=== PATIENT | male | born 1985 | race Caucasian/White ===

== ENCOUNTER 2017-04-12 17:24 | Emergency (ER) | payer OTHER ==
[~2017-04-12] VITALS: Ht 195.6 cm; Wt 122.7 kg
[~2017-04-12 17:24] MED LIST: AMIT100T2 PO; CALC500T9 PO; IBUP-1827 PO; INSU100I13 SUBQ; LISI40TA PO; METF500T4 PO; ONDA4TAB12 PO; OXYC5TAB72 PO; POLY17PO6 PO
[2017-04-12 17:33] VITALS: BP 153/109; PULSE 127; RESP 16; O2SAT 96
[2017-04-12] MEDS ORDERED: 0.9% Sodium Chloride 1,000 ML IV ONE (18:13)
[2017-04-12 18:38] LABS: APPEARANCE,URINE CLEAR (CLEAR,HAZY); COLOR,URINE YELLOW (YELLOW); OCCULT BLOOD,URINE MODERATE (NEGATIVE); UROBILINOGEN,URINE NORMAL (NORMAL)
[2017-04-12 18:55] LABS: BASOPHILS % (AUTO) 0.2 % (0-3); EOSINOPHILS % (AUTO) 0.9 % (0-5); MONOCYTES % (AUTO) 5.7 % (4-12); Mean Corpuscular Hemoglobin 28.9 pg (27.0-35.0); Mean Corpuscular Volume 81.1 fL (81-100); NEUTROPHILS % (AUTO) 65.2 % (40-74); Platelet Count 250 bil/L (150-400)
--- NOTE | 2017-04-12 18:55 | ED.REPORT ---
HPI- Male Date of Service Apr 12, 2017 ED Provider: Boy Barrow MD 31 y/o male with a hx of DM Type II (uses 50 units of Lantus and metformin) and HTN presents to the ED complaining of right testicle swelling, onset 3 days ago. The swelling got suddenly significantly worse last night. He denies pain but states it is mildly uncomfortable. He denies fever, shaking, chills, vomiting, nausea, penile discharge, hematuria and dysuria. He states he only had one episode of mild dysuria this morning but nothing since. The pt is concerned and became emotional after the ultrasound because he has never experienced similar sx before. He denies sexual partners other than his . PCP: Dr. Belinda Sevilla at [facility] Nursing Notes Stated Complaint: SWOLLEN TESTICLE Chief Complaint: Male Abdominal Pain Nursing Notes Reviewed: Yes Allergies: Coded Allergies: Penicillins (Verified Allergy, Mild, Rash, 04/02/16) Scheduled Amitriptyline (Amitriptyline) 100 Mg Tablet 100 MG PO HS Insulin Glargine (Lantus U100 Solostar Insulin Pen) 100 Unit/1 Ml Insuln.pen 55 UNIT SUBQ DAILY Lisinopril (Lisinopril) 40 Mg Tablet 40 MG PO DAILY Metformin (Metformin) 500 Mg Tablet 1,000 MG PO BID Sulfamethoxazole/Trimeth 800-160 mg (Bactrim DS) 1 Each Tablet 1 TABLET PO BID Scheduled PRN Calcium Carbonate (Tums) 500 Mg Tab.chew 500 MG PO PRN PRN PRN Heartburn Ibuprofen (Ibuprofen) 600 Mg Tablet 600 MG PO QID PRN PRN For Pain Ondansetron ODT (Ondansetron ODT) 4 Mg Tab.rapdis 4 MG PO Q6H PRN PRN For Nausea Polyethylene Glycol 3350 (Miralax) 17 Gm Powd.pack 17 GM PO DAILY PRN PRN For Constipation oxyCODONE (oxyCODONE) 5 Mg Tablet 10 MG PO Q4H PRN PRN For Pain General Time Seen by MD: 18:12 Chief Complaint Testicle swollen right Hx Obtained From: Patient Arrived By: Walk-in Onset Occurred: 3 days ago Symptom Duration: Since onset Severity: Current: No pain currently Severity: Maximum: No pain Recent Healthcare: No recent doctor visit Similar Sx Previous: No Past Medical History Past Medical History Diabetes HTN Past Surgical History Left Knee Eye surgery as child Smoking History Current Every Day Smoker Social History Alcohol Use: "Social" Drug Use: Cocaine, THC Other Social History: Ambulatory Status Independent Review of Systems Constitutional: Denies: Chills, Fever GI: Denies: Nausea, Vomiting Male: Reports Testicular swelling (right testicle), Denies Dysuria, Denies Hematuria, Denies Penile discharge, Denies Testicular pain Complete sys rev & neg: except as marked. Physical Exam Initial Vital Signs Vital Signs (First) Date Time Temp Pulse Resp B/P Pulse Ox O2 Delivery O2 Flow Rate FiO2 04/12/17 17:33 36.8 127 16 153/109 96 Room Air Initial VS: Reviewed Head / Eyes: Atraumatic, Normocephalic Neck: Supple, Non-tender, Full range of motion Respiratory: Breath sounds normal, Clear to auscultation, No respiratory distress Cardiovascular: Regular rate & rhythm, Heart sounds normal, Intact distal pulses Extremities: Vascular intact, Neuro intact, No swelling, No tenderness Skin: Warm, Dry, No cyanosis Neurologic: Alert, Oriented, Nonfocal Male Genitourinary: Atraumatic, Penis NL Normal circumcised external genitalia except the obviously swollen right testicle ,which is mildly tender. Did not trans-illuminate. Epididymis feels engorged Ultrasound report is concerning as well, as per the radiologist. Mild inguinal adenopathy General/Constitutional: Awake, Alert, Cooperative Abdomen: Atraumatic, Soft, Non-tender, No guarding, No rebound Interpretation & Diagnostics PROCEDURE: US TESTICULAR SONOGRAM WITH DOPPLER IMPRESSION: Enlarged, hyperemic right testicle suggestive of orchitis however cannot exclude diffuse infiltrative testicular neoplasm if there is no clinical suspicion of infection. Please correlate clinically, and with urinalysis data. Consider followup testicular ultrasound in 1-2 weeks after treatment for further assessment, and to exclude the possibility of neoplasm. No evidence of torsion. Dictated by: Dinesh Moreno M.D. on 04/12/2017 at 19:20 Approved by: Dinesh Moreno M.D. on 04/12/2017 at 19:26 Lab Results Interpretation Result Diagram: 04/12/17 1848 04/12/17 1848 Test 04/12/17 18:28 04/12/17 18:48 Urine Color Yellow (YELLOW) Urine Appearance Clear (CLEAR,HAZY) Urine pH 5.0 (5.0-8.0) Urine Specific [place] 1.020 (1.003-1.035) Urine Protein Negativemg/dL (NEG,TRACE) Urine Glucose (UA) 1000mg/dL (NEGATIVE) Urine Ketones Negativemg/dL (NEGATIVE) Urine Occult Blood Moderate (NEGATIVE) Urine Nitrite Negative (NEGATIVE) Urine Bilirubin Negative (NEGATIVE) Urine Urobilinogen Normalmg/dL (NORMAL) Urine Leukocyte Esterase Negative (NEGATIVE) Urine RBC 3-10/hpf (0-2) Urine WBC 0-5/hpf (0-5) Urine Epithelial Cells Few/hpf (NONE-MOD) Urine Crystals None seen (NONE SEEN) Urine Bacteria Few/hpf (NONE-FEW) Urine Hyaline Casts None/lpf (NONE) Urine Granular Casts None seen (NONE SEEN) Urine Waxy Casts None seen (NONE SEEN) Urine Red Blood Cell Casts None seen (NONE SEEN) Urine White Blood Cell Casts None seen (NONE SEEN) Urine Mucus None seen (None Seen) Urine Trichomonas None seen (NONE SEEN) Urine Yeast None (NONE SEEN) Urinalysis Comment None Urine Culture Reflexed Not indicated White Blood Count 9.5th/mm3 (3.8-10.1) Red Blood Count 5.50mil/mm3 (4.40-5.80) Hemoglobin 15.9g/dL (13.8-17.2) Hematocrit 44.6% (41.0-50.0) Mean Corpuscular Volume 81.1fL (81-100) Mean Corpuscular Hemoglobin 28.9pg (27.0-35.0) Mean Corpuscular Hemoglobin Concent 35.7% (32.0-37.0) Red Cell Distribution Width 12.4% (12.3-15.4) Platelet Count 250bil/L (150-400) Neutrophils (%) (Auto) 65.2% (40-74) Lymphocytes (%) (Auto) 27.9% (14-46) Monocytes (%) (Auto) 5.7% (4-12) Eosinophils (%) (Auto) 0.9% (0-5) Basophils (%) (Auto) 0.2% (0-3) Sodium Level 133mEq/L (134-144) Potassium Level 4.0mEq/L (3.5-5.2) Chloride Level 94mEq/L (97-108) Carbon Dioxide Level 24mmol/L (18-29) Blood Urea Nitrogen 14mg/dL (6-20) Creatinine 0.68mg/dL (0.76-1.27) Estimat Glomerular Filtration Rate 144mL/min (>59) Glucose Level 270mg/dL (60-99) Lactic Acid Level 1.1mmol/L (0.4-2.0) Calcium Level 9.7mg/dL (8.5-10.1) Total Bilirubin 0.3mg/dL (0.0-1.2) Aspartate Amino Transf (AST/SGOT) 16U/L (0-50) Alanine Aminotransferase (ALT/SGPT) 18U/L (0-44) Alkaline Phosphatase 90U/L (25-150) Total Protein 7.8g/dL (6.4-8.4) Albumin 4.4g/dL (3.4-5.0) Lab Results Interpretation: Blood glucose = 270 Re-Eval/Medical Decision Med Decision/Clinical Course 31-year-old male who is a diabetic. He presents with painless testicular swelling reportedly for only 3 days. He is noted be tachycardic, 127 on arrival, improved to 112 on departure did not appear to be septic or hypovolemic is noted be anxious. I am concerned this may be a malignancy however relatively short time frame argues more for an infectious process. Does not appear to have a viral syndrome, and while he doubts that he has a bacterial infection, we will start him on treatment empirically pending follow-up. He is referred for urology follow-up. Source of Hx: Old records Re-Evaluation/Progress : Time of Eval: 20:42 Re-Evaluation/Progress Note: Rechecked pt. Discussed lab results, imaging results, diagnosis and plan to discharge so the pt can follow up with his PCP and urologist. Informed the pt the urologist has not returned the calls yet. The pt understands and agrees with the plan. All questions answered. Consultation #1: Referral / Consult Name: Kaleb Dai MD Consulted With: Primary care physician Call Returned at: 20:37 Doughnut Icer: Will see in office, Agrees with eval Note: Dr. Dai agrees with eval and plan to follow up with the pt. Consultation #2: Consulted With: Urology Call Returned at: 20:59 Note: The P.A. covering for Dr. Pleitez returned the call and informed about the pt's condition. Counseled Regarding: Diagnosis, Lab results, Need for follow-up, When/why to return to ED Discharge & Departure Impression: Primary Impression: Testicular swelling, right Disposition: Home Discharge Condition All VS Reviewed: Yes Condition: Stable Patient Instructions: Orchitis (ED) Additional Instructions: Emergency department evaluation today included interview, examination, labs and ultrasound of scrotum. We note significant swelling of the right testicle, the cause of this at present is not certain. We will start an antibiotic in case this is a bacterial infection. Take bactrim DS one twice daily for 10 days, Close follow-up with primary care and urology is needed to ensure that this resolves or that it is further evaluated if not resolving. May use ibuprofen as needed for pain, wear underwear that supports your scrotum and elevate scrotum on a towel when seated or reclining. Return emergency Department for fevers shaking chills vomiting or other new symptoms. Referrals: Belinda Sevilla MD (PCP) Blanquita Pleitez MD Scribe Attestation Portions of this note were transcribed by Rodolfo Brewer. I, , personally performed the history, physical exam and medical decision- making;I reviewed and confirmed the accuracy of the information in the transcribed note. Signed by Jessie Daniels. 04/12/17 20:46 copies to: Blanquita Pleitez MD; Belinda Sevilla MD, Donald L MD Apr 12, 2017 18:55 Rodolfo Brewer Apr 12, 2017 19:27
--- NOTE | 2017-04-12 19:28 | DRSVH ---
PROCEDURE: US TESTICULAR SONOGRAM WITH DOPPLER INDICATIONS: r/o torsion. History of swelling x3 days TECHNIQUE: Real-time scanning was performed of the scrotum and testicles, with image documentation. Color and p ulse Doppler interrogation was performed of both testicles. COMPARISON: None. FINDINGS: There are incidentally noted punctate bilateral testicular calcifications, technically a n onspecific finding. Right: Testicle is normal in size at 6.4 x 3.8 x 4.6 cm, and diffusely heterogeneous in echotexture. Epididymis is not well visualized. No hydrocele or varicoceles. Overlying scrotal skin is normal in thickness. Left: Testicle is normal in size at 4.3 x 2.5 x 3.9 cm, and homogeneous in echotexture. Epididymis is normal in overall size and morphology. No hydrocele or varicoceles. Overlying scrotal skin is no rmal in thickness. Doppler: Color and pulse Doppler demonstrate normal and symmetric arterial flow in both testicles. No evidence of right testicular torsion. There is right testicular hyperemia. IMPRESSION: Enlarged, hyperemic right testicle suggestive of orchitis however cannot exclude diffuse infiltrative testicular neoplasm if there is no clinical suspicion of infection. Please correlate clinically, and with urinalysis data. Consider followup testicular ultrasound in 1-2 weeks after treatment for furth er assessment, and to exclude the possibility of neoplasm. No evidence of torsion. Dictated by: Dinesh Moreno M.D. on 04/12/2017 at 19:20 Approved by: Dinesh Moreno M.D. on 04/12/2017 at 19:26
[2017-04-12] MEDS ORDERED: Trimethoprim-Sulfa 160 mg-800 mg Tablet PO ONE (20:50)
[2017-04-12] MEDS ORDERED: SULF1TAB7 PO (20:52)
[2017-04-12 21:32] VITALS: BP 154/110; PULSE 112; RESP 18; O2SAT 99
== END 2017-04-12 21:00 | disposition home or self-care (01) ==
LOC: SED 17:24
DX: N50.811 Right testicular pain (principal); I10 Essential (primary) hypertension; E11.9 Type 2 diabetes mellitus without complications; F17.200 Nicotine dependence, unspecified, uncomplicated; Z79.84 Long term (current) use of oral hypoglycemic drugs; Z79.4 Long term (current) use of insulin; Z88.0 Allergy status to penicillin
CPT/HCPCS: 36415; 76870; 80053; 81000; 83605; 85025; 93975; 96360; 99284; J7030

== ENCOUNTER 2017-04-17 17:50 | Emergency (ER) | payer OTHER ==
[~2017-04-17] VITALS: Ht 195.6 cm; Wt 114.1 kg
[~2017-04-17 17:50] MED LIST changes: +SULF1TAB7 PO
[2017-04-17 18:04] VITALS: BP 118/77; PULSE 129; RESP 20; O2SAT 100
[2017-04-17 18:43] LABS: BASOPHILS % (AUTO) 0.2 % (0-3); EOSINOPHILS % (AUTO) 1.1 % (0-5); MONOCYTES % (AUTO) 5.5 % (4-12); Mean Corpuscular Hemoglobin 29.1 pg (27.0-35.0); NEUTROPHILS % (AUTO) 69.2 % (40-74); Platelet Count 279 bil/L (150-400)
--- NOTE | 2017-04-17 18:44 | ED.REPORT ---
HPI-General Illness Date of Service Apr 17, 2017 ED Provider: Aida Thomas MD 31 y/o male with a hx of DM and HTN presents to the ED complaining of painless right testicular swelling for the last week. The swelling suddenly came on over 3 days. He was seen at the ED 5 days ago for the same complaint and was told it may be an infection or malignancy. He was discharged with antibiotic and instruction to follow up with urology. The pt followed his urologist's recommendation to finish the antibiotic course but has had no relief. He called the urologist today for persistent swelling, who advised him to go to the ED. Associated sx incldue intermittent chills, nausea, dry heaving, one episode of vomiting, and weakness. The pt also states "I get hot easily and I have shortness of breath sometimes when I move a lot". He denies any testicular pain , fever, cough, myalgia, dysuria and any other sx. The pt's states his blood sugar has also been high. Nursing Notes Stated Complaint: ANTIBIOTICS NOT WORKING, POTENTIAL INFECTION Chief Complaint: General Complaint Nursing Notes Reviewed: Yes Allergies: Coded Allergies: Penicillins (Verified Allergy, Mild, Rash, 04/17/17) Scheduled Amitriptyline (Amitriptyline) 100 Mg Tablet 100 MG PO HS Insulin Glargine (Lantus U100 Solostar Insulin Pen) 100 Unit/1 Ml Insuln.pen 55 UNIT SUBQ DAILY Lisinopril (Lisinopril) 40 Mg Tablet 40 MG PO DAILY Metformin (Metformin) 500 Mg Tablet 1,000 MG PO BID Sulfamethoxazole/Trimeth 800-160 mg (Bactrim DS) 1 Each Tablet 1 TABLET PO BID Scheduled PRN Calcium Carbonate (Tums) 500 Mg Tab.chew 500 MG PO PRN PRN PRN Heartburn Ibuprofen (Ibuprofen) 600 Mg Tablet 600 MG PO QID PRN PRN For Pain Naproxen (Naproxen) 375 Mg Tablet 375 MG PO BID PRN PRN For Pain Ondansetron ODT (Ondansetron ODT) 4 Mg Tab.rapdis 4 MG PO Q6H PRN PRN For Nausea Polyethylene Glycol 3350 (Miralax) 17 Gm Powd.pack 17 GM PO DAILY PRN PRN For Constipation oxyCODONE (oxyCODONE) 5 Mg Tablet 10 MG PO Q4H PRN PRN For Pain General Time Seen by MD: 18:42 Chief Complaint Other (right testicle swelling) Hx Obtained From: Patient Arrived By: Walk-in Sudden in Onset?: Yes Onset Occurred: 1 week ago Symptom Duration: Since onset Severity: Current: No pain currently Severity: Maximum: No pain Recent Healthcare: Recent doctor visit Similar Sx Previous: Yes Past Medical History Past Medical History Diabetes HTN Past Surgical History Left Knee Eye surgery as child Smoking History Current Every Day Smoker Social History Alcohol Use: "Social" Drug Use: Cocaine, THC Other Social History: Ambulatory Status Independent Review of Systems Reports: right testicular swelling Full Review of Systems Constitutional: Reports: Chills (intermittent), Weakness - generalized, Denies: Fever Respiratory: Reports: Dyspnea on exertion, Denies: Non-productive cough GI: Reports: Nausea (and dry heaving) Male: Denies Dysuria Musculoskeletal: Denies: Myalgia Complete sys rev & neg: except as marked. Physical Exam Vital Signs Vital Signs Date Time Temp Pulse Resp B/P Pulse Ox O2 Delivery O2 Flow Rate FiO2 04/17/17 22:38 37 110 20 112/67 98 Room Air 04/17/17 21:09 36.8 103 20 115/53 96 Room Air 04/17/17 18:04 36.6 129 20 118/77 100 Room Air Initial VS: Reviewed, Vital signs abnormal General/Constitutional: Well-developed, Well-nourished Neck: Supple, Non-tender, Full range of motion Extremities: Vascular intact, Neuro intact, No swelling, No tenderness Skin: Warm, Dry, No cyanosis Neurologic: Alert, Oriented, Nonfocal Respiratory / Chest: Atraumatic, Breath sounds NL, Breath sounds = bilat, No respiratory distress, No rales, No rhonchi, No wheezing Cardiovascular: Regular rhythm, Heart sounds NL, No gallop, No murmurs, No rubs Heart Rate / Rhythm: Positive: Tachycardia Abdomen: Atraumatic, Soft, Non-tender, No guarding, No rebound Transient RUQ abdominal discomfort resolved. Back: Atraumatic, Full range of motion, Painless range of motion, No CVA tenderness Male Genitourinary: Atraumatic, Inspection NL, No mass (no groin mass) Testes / Epidid / Scrotum: Positive: Testis enlarged R No warmth and no tenderness to right testis Interpretation & Diagnostics Lab Results Interpretation Result Diagram: 04/17/17 1835 04/17/17 1835 Test 04/17/17 18:26 04/17/17 18:35 04/17/17 21:24 Urine Color Yellow (YELLOW) Urine Appearance Clear (CLEAR,HAZY) Urine pH 5.0 (5.0-8.0) Urine Specific [place] 1.020 (1.003-1.035) Urine Protein Negativemg/dL (NEG,TRACE) Urine Glucose (UA) 1000mg/dL (NEGATIVE) Urine Ketones Tracemg/dL (NEGATIVE) Urine Occult Blood Negative (NEGATIVE) Urine Nitrite Negative (NEGATIVE) Urine Bilirubin Negative (NEGATIVE) Urine Urobilinogen Normalmg/dL (NORMAL) Urine Leukocyte Esterase Negative (NEGATIVE) Urine RBC 0-2/hpf (0-2) Urine WBC 0-5/hpf (0-5) Urine Epithelial Cells None/hpf (NONE-MOD) Urine Crystals None seen (NONE SEEN) Urine Bacteria Few/hpf (NONE-FEW) Urine Hyaline Casts None/lpf (NONE) Urine Granular Casts None seen (NONE SEEN) Urine Waxy Casts None seen (NONE SEEN) Urine Red Blood Cell Casts None seen (NONE SEEN) Urine White Blood Cell Casts None seen (NONE SEEN) Urine Mucus None seen (None Seen) Urine Trichomonas None seen (NONE SEEN) Urine Yeast None (NONE SEEN) Urinalysis Comment None Urine Culture Reflexed Not indicated White Blood Count 9.6th/mm3 (3.8-10.1) Red Blood Count 5.71mil/mm3 (4.40-5.80) Hemoglobin 16.6g/dL (13.8-17.2) Hematocrit 46.8% (41.0-50.0) Mean Corpuscular Volume 82.0fL (81-100) Mean Corpuscular Hemoglobin 29.1pg (27.0-35.0) Mean Corpuscular Hemoglobin Concent 35.5% (32.0-37.0) Red Cell Distribution Width 12.6% (12.3-15.4) Platelet Count 279bil/L (150-400) Neutrophils (%) (Auto) 69.2% (40-74) Lymphocytes (%) (Auto) 23.8% (14-46) Monocytes (%) (Auto) 5.5% (4-12) Eosinophils (%) (Auto) 1.1% (0-5) Basophils (%) (Auto) 0.2% (0-3) Sodium Level 132mEq/L (134-144) Potassium Level 5.1mEq/L (3.5-5.2) Chloride Level 92mEq/L (97-108) Carbon Dioxide Level 23mmol/L (18-29) Blood Urea Nitrogen 20mg/dL (6-20) Creatinine 1.11mg/dL (0.76-1.27) Estimat Glomerular Filtration Rate 82mL/min (>59) Glucose Level 363mg/dL (60-99) Calcium Level 10.0mg/dL (8.5-10.1) Total Bilirubin 0.3mg/dL (0.0-1.2) Aspartate Amino Transf (AST/SGOT) 16U/L (0-50) Alanine Aminotransferase (ALT/SGPT) 17U/L (0-44) Alkaline Phosphatase 78U/L (25-150) Total Protein 7.1g/dL (6.4-8.4) Albumin 4.3g/dL (3.4-5.0) Ketones Negative (Negative) Lactic Acid Level 1.7mmol/L (0.4-2.0) ECG Interpretation ECG Interpretation: Sinus tachycardia. Rate 117 Normal intervals Normal axis No ST or T wave changes Time: 19:02 Interpreted by: ED physician Re-Eval/Medical Decision Med Decision/Clinical Course The patient was sent in by the urologist, there is concern that the antibiotic may not be working. His lab values are essentially the same as they were upon his visit. The patient was noted to be tachycardic however he was tachycardic on his last visit as well, therefore there is been no change. The general malaise could be related to the antibiotic he is on. The patient does not appear to be getting worse and he is nontoxic appearing. He has a repeat ultrasound ordered. In speaking with the on-call urologist Dr. Wheeler, he recommended strict bedrest with scrotal elevation as well as anti- inflammatories. It is unclear as to the cause of his swelling, it could be orchitis given the rapid onset of swelling however he does not have any pain however he is diabetic which may be contributing to having an atypical presentation. He has close follow-up to evaluate for neoplasm. Time of Eval: 22:06 Re-Evaluation/Progress Note: Rechecked pt. Discussed lab results, diagnosis and plan to discharge. Pt understands and agrees with the plan. F/U instructions and RTER warning given. All questions addressed. Consultation : Referral / Consult Name: Adrian Wheeler MD Consulted With: Urology Call Returned at: 21:55 Automotive Assembler: Will see in office, Agrees with eval, Agrees with plan Note: Dr. Wheeler recommends continuing antibiotics, bed rest, scrotal elevation and follow up this week. Counseled Regarding: Diagnosis, Lab results, Need for follow-up, When/why to return to ED Discharge & Departure Primary Impression: Testicular swelling, right Disposition: Home Discharge Condition All VS Reviewed: Yes Condition: Stable Additional Instructions: Thank you for entrusting us with your care. Follow up with your urologist this week. You need bed rest for a few days and should elevate your scrotum. Take Tylenol or Ibuprofen if needed. Return emergency Department for fevers shaking chills vomiting or other new symptoms. Referrals: Belinda Sevilla MD (PCP) Scribe Attestation Portions of this note were transcribed by Rodolfo Brewer. I, , personally performed the history, physical exam and medical decision-making;I reviewed and confirmed the accuracy of the information in the transcribed note. Signed by Jessie Daniels. 04/17/17 23:07 copies to: Belinda Sevilla MD, Jena M MD Apr 17, 2017 18:44 Rodolfo Brewer Apr 17, 2017 19:09
[2017-04-17] MEDS ORDERED: 0.9% Sodium Chloride 1,000 ML IV ONE ×2 (18:45→20:45)
[2017-04-17 18:47] LABS: APPEARANCE,URINE CLEAR (CLEAR,HAZY); COLOR,URINE YELLOW (YELLOW); OCCULT BLOOD,URINE NEGATIVE (NEGATIVE); UROBILINOGEN,URINE NORMAL (NORMAL)
[2017-04-17 21:09] VITALS: BP 115/53; PULSE 103; RESP 20; O2SAT 96
[2017-04-17] MEDS ORDERED: NAPR375T2 PO (22:19)
[2017-04-17 22:38] VITALS: BP 112/67; PULSE 110; RESP 20; O2SAT 98
== END 2017-04-17 22:39 | disposition home or self-care (01) ==
LOC: SED 17:50
DX: N50.89 Other specified disorders of the male genital organs (principal); I10 Essential (primary) hypertension; E11.9 Type 2 diabetes mellitus without complications; F17.200 Nicotine dependence, unspecified, uncomplicated; Z79.4 Long term (current) use of insulin; Z79.84 Long term (current) use of oral hypoglycemic drugs; Z88.0 Allergy status to penicillin
CPT/HCPCS: 36415; 80053; 81000; 82009; 83605; 85025; 87040; 87086; 93005; 96360; 96361; 99284; J7030

== ENCOUNTER 2017-05-24 10:25 | Day surgery (SDC) | payer OTHER ==
--- NOTE | 2017-05-18 16:31 | PCM.ANEPRE ---
Anesthesia Pre-Op Review Reason for Review: Elevated A1C Anesthesia Recommendations: Delay until Additional Data Obtain Additional Comments contacted re: 31yo male IDDM with evidence poor glycemic control (A1C ~11 01/2017 ). Will repeat A1C and triage for medical clearance to address periop glycemic control pending A1C>8 per recently circulated guidelines. Mark Asencio DO May 18, 2017 16:31
[~2017-05-24] VITALS: Ht 195.6 cm; Wt 115.1 kg
[2017-05-24] VITALS (11 sets, daily range): BP systolic 98–134; BP diastolic 43–79; PULSE 100–116; RESP 13–24; O2SAT 95–99
[~2017-05-24 10:25] MED LIST changes: +CeFAZolin 2 Gm/50 mL D5W IV Premix IV SCH; -IBUP-1827 PO; -ONDA4TAB12 PO; -OXYC5TAB72 PO; -POLY17PO6 PO; -SULF1TAB7 PO
[2017-05-24] MEDS ORDERED: Propofol 10,000 mCg/mL 20 mL Inj ONE (10:26)
[2017-05-24] MEDS ORDERED: fentaNYL-PF 50 mCg/mL 2 mL Inj ONE ×2 (10:26→16:00)
[2017-05-24] MEDS ORDERED: Ondansetron 2 mg/mL 2 mL Inj ONE (10:26)
[2017-05-24] MEDS ORDERED: EPHEDrine/NS 5 mg/mL 5 mL Syringe ONE (10:26)
[2017-05-24] MEDS ORDERED: Succinylcholine Chloride 20 mg/mL 5 mL Inj ONE (10:26)
[2017-05-24] MEDS: Lactated Ringer's 1,000 ML IV SCH ×2 (10:31→12:41)
[2017-05-24] MEDS ORDERED: Insulin Human REGular-Omnicell 100 Unit/mL ONE (11:54)
--- NOTE | 2017-05-24 11:56 | PCM.HPANE ---
Patient Data Surgeon Admitting Provider: Attending Provider:Daphne Hopkins MD Primary Care Physician:Belinda Sevilla MD Other Provider:[facility] Anest[facility] Reason for Visit Right Testicular Mass Ht/WT & BMI Height (Feet): 6 Height (Inches): 5 Weight (Kilograms): 115.6 Body Mass Index 30.00 Allergies Coded Allergies: Penicillins (Verified Allergy, Mild, Rash, 05/18/17) Past Anesthesia History Anesthesia History: Denies:: Abnormal Airway, Anesthesia Reactions, Difficult Intubation, Fam Anesthesia Reaction, Fam Malignant Hypertherm, Malignant Hyperthermia Diabetes History Hx Diabetes?: Yes Type of Diabetes: Type II Glycemic Control: Insulin & Oral Medication MRSA MRSA: No Medications Hypertension Medication: Yes (lisinopril) Reported Medications Calcium Carbonate (Tums)500 Mg Tab.rmch130 Mg PO PRN PRN Heartburn 30 Days 03/30/16 Insulin Glargine (Lantus U100 Solostar Insulin Pen)100 Unit/1 Ml Insuln.pen55 Unit SUBQ DAILY Diabetes #1 PENINJ Ref 0 03/30/16 Metformin 500 Mg Tablet1,000 Mg PO BID Diabetes Ref 0 03/30/16 Lisinopril 40 Mg Rxbgns49 Mg PO DAILY HIGH BLOOD PRESSURE 30 Days Ref 0 03/30/16 Amitriptyline 100 Mg Gdzzwp450 Mg PO HS Neuropathy Ref 0 03/30/16 Discontinued Reported Medications Ibuprofen 600 Mg Kjhfni846 Mg PO QID PRN For Pain Ref 0 03/30/16 Discontinued Scripts Naproxen 375 Mg Tlgebq663 Mg PO BID PRN For Pain #20 TABLET Ref 0 Prov:Aida Thomas MD 04/17/17 Sulfamethoxazole/Trimeth 800-160 mg (Bactrim DS)1 Each Tablet1 Tablet PO BID # 20 TABLET Prov:Boy Barrow MD 04/12/17 Polyethylene Glycol 3350 (Miralax)17 Gm Powd.pack17 Gm PO DAILY PRN For Constipation #1 BOTTLE Prov:Khalif Painter MD 04/04/16 oxyCODONE 5 Mg Xlhmzx27 Mg PO Q4H PRN For Pain #50 TABLET Prov:Khalif Painter MD 04/04/16 Ondansetron ODT 4 Mg Tab.rapdis4 Mg PO Q6H PRN For Nausea #20 TABLET Prov:Khalif Painter MD 03/31/16 Last Time Dose Received No meds today 55 u subq lantus last night. History History of ENT Problems?: Yes HEENT History: Positive for:: Hearing Problem Denies:: Abnormal Airway Cataracts Difficult Intubation Dysphagia Sinus Problem TMJ Denture Type: None Teeth Condition: Within Normal Limits Hx of Heart Problems?: Yes Cardiovascular History: Positive for:: Hypertension Denies:: Abdominal Aortic Aneurism Atrial Fibrillation Cardiac Surgery Chest Pain Congestive Heart Failure Coronary Artery Disease Edema Heart Murmur Irregular Heartbeat Pacemaker Thrombophlebitis Other History/Comments tachycardia - sinus, recently Hx of Respiratory Problem?: No Respiratory History: Denies:: Asthma COPD Chest Surgery Dyspnea Emphysema Hemoptysis Pneumonia Pulmonary Embolism Tuberculosis Use of C-PAP Machine Hx Neurologic Problems?: Yes Neurological History: Denies:: Alzheimer's Disease CVA Dementia Dizziness Headaches Multiple Sclerosis Parkinson's Disease Seizures Hx of GI Problems?: Yes Hx of Problems?: No Genitourinary History: Denies:: HX of Hemodialysis Kidney Stones Urinary Tract Infection HX of Peritoneal Dialysis: No Male Hx: Positive for:: Scrotal Mass (reason for surgery) Denies:: Prostate Problems Testicular Surgery Skin History: Denies:: History Skin Disorders? Pressure Ulcers Hx Musculoskeletal Problems?: No Musculoskeletal History: Positive for:: Musculoskeletal Trauma (torn meneiscus ) Denies:: Back Injury Degenerative Joint Fibromyalgia Joint Replacement Myasthenia Gravis Osteoarthritis Rheumatoid Arthritis Systemic Lupus Hx of Psycho/Social Problems?: No Psycho Social History: Positive for:: Hx Depression (Depression at 20 years. ) Denies:: Anxiety Bipolar Disorder Suicide Attempt Hx Surgeries?: Yes (APPY) Hx Any Other Health Problems?: Yes Other History: Positive for:: Hospitalization (appy 2015) Denies:: Cancer Endocrine Disease Thyroid Disease History Blood Transfusions: Positive for:: Accept Blood Products? Denies:: Blood Transfusions Hx Diabetes: Yes Hx Alcohol Use: No (SOCIAL OCCASSIONS)Hx Substance Use: Yes (MARIJUANA SMOKEWS ) Smoking Status: Current Every Day Smoker Have You Smoked inLast 12 mo: YesApprox How Many Cigarettes/day: VAPS Stop/Bang S-Snoring: Do You Snore Loudly: Yes T-Tired: feel tired, fatigued: No O-Obsered: Observed not breath: Yes P-Blood Pressure: treated: Yes B- Body Mass Index > 35 kg/m2: No A- Age over 50: No N- Neck Large Circumference: No G- Gender Male: Yes PANCHO Total Score: 4 Risk Assessment Category Category 1A: Patient has history of documented sleep apnea, and HAS NOT received any narcotic, sedative or anesthesia administration during this stay. Category 1B: Patient has history of documented sleep apnea, and HAS received any narcotic , sedative or anesthesia administration during this stay Category 2: Patient has SUSPECTED Obstructive Sleep Apnea, and HAS received any narcotic , sedative or anesthesia administration during this stay. Category 3: Patient has SUSPECTED Obstructive Sleep Apnea and HAS NOT received narcotic, sedative or anesthesia administration during this stay. Category 4: Outpatient in Procedural Areas with known sleep apnea or who screen positive for High Risk via the STOP/BANG questionnaire. Exam Exam Vital Signs Vital Signs Date Time Temp Pulse Resp B/P Pulse Ox O2 Delivery O2 Flow Rate FiO2 05/24/17 11:19 35.5 103 16 134/78 99 Room Air General Appearance: Alert, Oriented X3 HEENT/AIRWAY: MP 2, Neck Movement (FROM) Lungs: Clear to Auscultation, Clear to Percussion Heart: Exam Unremarkable, Regular Rate/Rhythm Meds/Labs/Diagnostics Admission Meds Current Medications Lactated Ringer's (Lr) 1,000 ml @ 120 mls/hr Q8H20M IV Last administered on t 10:31; Start 05/24/17 at 05:00; Stop 05/24/17 at 13:19 Plan Impression Patient chart reviewed, patient interviewed and anesthestic plan with risks, benefits, and alternatives discussed, and informed consent obtained. ASA Physical Status: ASA3 Severe Disease (Very poorly controlled DM) Anesthetic Plan: GA Bene/Risks/Altern/Consents: Yes HP Complete Prior to Induction: Yes Other I had a long discussion with the pt and Dr. Hopkins. Pt's DM is very poorly controlled, however, due to the time sensitive nature of the surgery we will proceed and pt. understands the increased risks of poor wound healing and infection. On a broader note, I discussed the gravity of the patient's poorly controlled DM. I strongly recommended he discuss his poorly controlled DM with his PCP, because if it is left untreated he is at risk for many complications in years to come. He understood our discussion. Of note his BS was 304 this am after being NPO and receiving his normal insulin dose of lantus 55 u last night. This indicates that his BS while eating and post-prandially is likely higher, which is reflected in his hgbA1c Kasi Mandel MD May 24, 2017 11:34
--- NOTE | 2017-05-24 11:59 | DRSVH ---
PROCEDURE: X-RAY CHEST ONE VIEW, PORTABLE ([id number]) INDICATIONS: SMOKER TECHNIQUE: One view of the chest was acquired. COMPARISON: [facility], , CHEST 1VW (PORTABLE), 12/12/2012, 11:22. FINDINGS: Surgical changes and devices: None. Lungs and pleura: No pleural effusions or pneumothorax. Lungs are clear. Mediastinum: Mediastinal contours appear normal. Heart size is normal. Bones and chest wall: No suspicious bony lesions. Overlying soft tissues appear unremarkable. IMPRESSION: No acute cardiopulmonary disease. Dictated by: Ezra Armstrong M.D. on 05/24/2017 at 11:57 Approved by: Ezra Armstrong M.D. on 05/24/2017 at 11:57
[2017-05-24 12:09] LABS: Mean Corpuscular Hemoglobin 28.9 pg (27.0-35.0); Mean Corpuscular Volume 83.3 fL (81-100)
[2017-05-24] MEDS ORDERED: Bupivacaine-MPF 0.5% 30 mL Inj INFILTRATE ONE (13:17)
[2017-05-24] MEDS ORDERED: HYDROcodone-APAP 5-325 mg Tablet PO PRN (14:10)
[2017-05-24] MEDS ORDERED: Ondansetron 8 mg ODT Tablet PO PRN (14:10)
[2017-05-24] MEDS ORDERED: Atropine 0.4 mg/mL Inj IVPUSH PRN (14:15)
[2017-05-24] MEDS ORDERED: Labetalol 5 mg/mL 20 mL Inj IV PRN (14:15)
[2017-05-24] MEDS ORDERED: EPHEDrine Sulfate 50 mg/mL Inj IVPUSH PRN (14:15)
[2017-05-24] MEDS ORDERED: Ondansetron 2 mg/mL 2 mL Inj IVPUSH PRN (14:15)
[2017-05-24] MEDS ORDERED: MetoCLOpramide 5 mg/mL 2 mL Inj IVPUSH PRN (14:15)
[2017-05-24] MEDS ORDERED: Lactated Ringer's 1,000 ML IV SCH (14:15)
[2017-05-24] MEDS ORDERED: Lactated Ringer's 500 ML IV PRN (14:15)
[2017-05-24] MEDS ORDERED: HYDROmorphone 1 mg/mL Inj IVPUSH PRN (14:15)
[2017-05-24] MEDS ORDERED: Phenylephrine 10,000 mCg/mL Inj IVPUSH PRN (14:15)
--- NOTE | 2017-05-24 14:15 | PCM.ANEP1 ---
Post Anesthesia PACU Phase 1 Assessment Vital Signs Vital Signs Date Time Temp Pulse Resp B/P Pulse Ox O2 Delivery O2 Flow Rate FiO2 05/24/17 11:19 35.5 103 16 134/78 99 Room Air Anesthetic Administered: GA Level of Alertness: Sleepy, easy to arouse ROMAN's with Equal Strength: Yes Pain: No Nausea or Vomiting: No CV Function & Hydration Stable: Yes Airway Device: Oralpharangeal Airway Oxygen Delivery: Simple Mask Lungs: Clear to Auscultation, Clear to Percussion PACU Phase 2 Assessment Complications: No Follow up Care: No Patient Instructions Provided: N/A Comments See anesth record for PACU VS. PACU VSS Kasi Mandel MD May 24, 2017 14:15
[2017-05-24] MEDS: fentaNYL-PF 50 mCg/mL 2 mL Inj IVPUSH PRN ×3 (14:47→16:30)
--- NOTE | 2017-05-25 18:52 | OP ---
[address] [address] OPERATIVE REPORT PATIENT: SARMAD RHODES : 1985 MR#: [id number] ADMIT: 05/24/2017 JOB ID: [id number] CORRECTED REPORT: DATE OF SURGERY: 05/24/2017 SURGEON: Daphne Hopkins MD. ANESTHESIA: General. PREOPERATIVE DIAGNOSIS(ES): Right testis mass. POSTOPERATIVE DIAGNOSIS(ES): Right testis mass. PROCEDURE: Right radical orchiectomy INDICATIONS: The patient is a 31-year-old gentleman with severe insulin-dependent diabetes and other multiple medical issues presenting to [facility] and evaluated by [facility] and found to have a testis mass. Repeat ultrasound revealed persistent heterogeneous suspicious mass. The patient had initially presented complaining of pain, however, this was stable after treatment with clear urine. No indications of infection. He was recommended to undergo radical orchiectomy. PROCEDURE IN DETAIL: After appropriate informed consent was obtained, the patient was brought to the operating room. His hemoglobin A1c was noted to be around 10-11, however, the risk of testis cancer was felt worthy of proceeding as his blood sugar was treated by Anesthesia preop. PROCEDURE IN DETAIL: After appropriate informed consent was obtained, the patient was brought to the operating room and received IV antibiotics prior to onset of procedure. He was made comfortable in the supine position. All pressure points carefully padded. SCDs were placed. Cleaned, prepped and draped in the usual sterile fashion. A right-sided groin incision was made transversely and a blunt dissection was carried out down to below the inguinal ring. We were able to work the testis itself which was not grossly terribly enlarged up into the inguinal canal and out through the wound. We then dissected back, removed the gubernacular sharply and bluntly with electrocautery and then once we had good length on the cord, this was clamped twice with a Jesusita clamp, . The specimen was handed off for permanent pathology and then we used a two stick ties of 0 silk on the proximal side as well as free ties in bundles as well as with the entire package. Hemostasis was excellent. We used electrocautery for the remainder of hemostasis. The wound itself was irrigated out copiously with antibiotic solution. The distal end of the cord was allowed to recede up the patient's inguinal canal. We used Marcaine with epinephrine along the cord, also along the wound itself for postop pain control. Hemostasis was excellent. The wound was closed with two layers of 2-0 Vicryl sutures, a layer of 4-0 Monocryl, benzoin and Steri-Strips. The patient tolerated the procedure very well, was awakened and taken in stable condition to the postanesthesia care unit. Corrected by GONZALES 05/30/17 at 12:57pm DOS.
--- NOTE | 2017-06-01 14:00 | PATH ---
SURGICAL PATHOLOGY Attending Physician:Daphne Hopkins MD CASE STATUS: Signed Out PATIENT NAME: SARMAD RHODES PID: [id number] : 1985 DATE COLLECTED:05/24/2017 00:00 SPECIMEN: Testis CLINICAL HISTORY: RIGHT TESTICULAR MASS 1). RIGHT TESTICLE FINAL DIAGNOSIS: Right Testicle, Radical Orchiectomy: - Seminoma. - See cancer summary data below ICD10: C62 CAP CANCER SUMMARY DATA Specimen: Testis. Procedure: Radical orchiectomy. Specimen laterality: Right. Tumor focality: Unifocal. Tumor size: 5.2 x 3.7 x 3.5 cm. Histologic type: Seminoma. Tumor extension: Limited to the testis without invasion of tunica vaginalis. Margins: Spermatic cord margin: Uninvolved by tumor. Lymphovascular invasion: No definite lymphovascular invasion identified, see comment. Regional lymph nodes: No lymph nodes submitted or found. Pathologic stage classification ( pTNM, AJCC 7th Edition): Primary tumor: pT1 Regional lymph nodes: pNX. NOTE: Occasional scattered tumor cells are identified floating in lymphovascular spaces along with red blood cells. However, due to the friable nature of the tumor, it is a favored that these cells are most likely carryover from sectioning. As part of routine water quality manager sections of the case were also reviewed by Dr. Ordoñez who agrees with the above interpretation. GROSS DESCRIPTION: The specimen is received in formalin, labeled with the patient's name, sublabeled as right testicle, weighs 127.9 g, and consists of testicle measuring (6.7 x 5.3 x 5.2 cm), epididymis (5.5 x 1.7 x 0.5 cm), attached portion of spermatic cord (length-7.3 cm, diameter-1.6 cm), and tunica vaginalis. On sectioning a strickland-white, rubbery and lobular well demarcated mass (5.2 x 3.7 x 3.5 cm) is identified within the testicle with thin rim of strickland-pink uninvolved parenchyma. The mass is 7.3 cm from the resection margin, 0.1 cm from the epididymis, and abuts the tunica albuginea but does not extend through. The epididymis is strickland spongy and unremarkable. The spermatic cord is fatty and unremarkable. No other nodules, masses or lesions are identified. Ink code: black-resection margin. Section code: (A) resection margin, enface; (B) spermatic cord, sincerely sectioned, sales and service representative; (C-H) mass, one full cross-section; (I-L) mass, sales and service representative. 05/25/17 JM MICRO DESCRIPTION: Immunohistochemical stains were performed to evaluate the neoplastic cells. The neoplastic cells are positive for CD117(variable), OCT3-4 (variable), D2-40 (diffuse) with only rare scattered cells positive for OLGA cytokeratin and are negative for CD30, CD20 and CD3. The control stains show appropriate reactivity. Overall the morphology and immunohistochemical staining profile support the above diagnosis. * This test was developed and its performance characteristics determined by [facility]. It has not been cleared or approved by the U.S. Food and Drug Administration. The FDA has determined that such clearance or approval is not necessary. This test is used for clinical purposes. It should not be regarded as investigational or for research. ICD-9 CODES: CPT CODES: 1: 98934, 15578, 14225, 37502, 85401, 11509, 45538, 16160 Electronically Signed Out Alfredo Zazueta MD [facility] Pathology [facility] [address], [place] [address] Technical component performed at [facility], [address], [place], [address]
== END 2017-05-24 23:59 | disposition home or self-care (01) ==
LOC: SAS 10:25
PROVIDERS: ATTEND Urology
DX: C62.01 Malignant neoplasm of undescended right testis (principal); N50.9 Disorder of male genital organs, unspecified; I10 Essential (primary) hypertension; E11.9 Type 2 diabetes mellitus without complications; F32.9 Major depressive disorder, single episode, unspecified; F17.210 Nicotine dependence, cigarettes, uncomplicated; Z79.4 Long term (current) use of insulin; Z79.84 Long term (current) use of oral hypoglycemic drugs
CPT/HCPCS: 36415; 54530; 71010; 80048; 85027; J0330; J0690; J1815; J2405; J2704; J3010; J7120